=== PATIENT | female | born 1945 | race Caucasian/White ===

== ENCOUNTER → 2018-07-04 | Outpatient (CLI) | payer MEDICARE ==
--- NOTE | 2018-07-04 13:46 | Diagnostic Imaging Report ---
EXAMINATION: Head CT HISTORY: Evaluate for CVA COMPARISON: None. TECHNIQUE: Multidetector axial images were obtained without contrast from the foramen magnum to the vertex . The images were reconstructed using brain and bone algorithms. Thin section brain images were reformatted into coronal and sagittal planes. Intravenous contrast: None. Image quality: Motion/streaking artifact limits the evaluation of the skull base and posterior cranial fossa. FINDINGS: Parenchyma: 1. Few scattered white matter hyperintense foci, most likely age appropriate minimal chronic microvascular ischemic changes. 2. No mass or hemorrhage. No CT evidence of acute territorial vascular insult. Extra-axial spaces:No abnormal density. No extra-axial fluid collections Brain volume: Normal for age. Ventricles: No hydrocephalus or displacement. Arteries: No density suggestive of thrombus. Dural sinuses: No abnormal density. Extra-axial spaces: No abnormal density. Foramen magnum: No mass, Chiari malformation, or basilar invagination. Sella: No obvious mass. Paranasal/mastoid sinuses: Imaged portions unremarkable. Skull/Scalp: No lytic or blastic lesions. No fractures. IMPRESSION: No acute intracranial abnormalities, particularly no hemorrhagic or acute cortical infarcts. Signed by: Dr. Sommer Ibarra M.D. on 07/04/2018 1:43 PM
== END ==
LOC: CT 12:11
PROVIDERS: ATTEND Family Medicine
DX: I65.29 Occlusion and stenosis of unspecified carotid artery (principal)
CPT/HCPCS: 70450

== ENCOUNTER → 2019-02-24 | Outpatient (CLI) | payer MEDICARE ==
--- NOTE | 2019-02-24 14:47 | Diagnostic Imaging Report ---
EXAMINATION: PA and lateral views of the chest. COMPARISON: None CLINICAL HISTORY: Chronic cough DISCUSSION: Lines/tubes: None. Lungs: The lungs are mildly hyperinflated, with increased lucency in the upper lungs, suggesting COPD. there is no evidence of pneumonia or pulmonary edema. Pleura: There is no pleural effusion or pneumothorax. Heart and mediastinum: Cardiomediastinal silhouette is unremarkable. Pulmonary vasculature is normal. Bones and soft tissues: No acute bony abnormalities. Degenerative changes in the thoracic spine IMPRESSION: COPD changes, without acute cardiopulmonary abnormalities. Signed by: Dr. Ramiro Coffey M.D. on 02/24/2019 2:44 PM
--- NOTE | 2019-02-24 14:48 | Diagnostic Imaging Report ---
Exam: Right Knee AP and lateral. History: Right knee pain and discomfort for one month Comparison: None. Findings: 2 views of the right knee. There is mildly decreased bone mineralization. Negative for acute, displaced fracture or dislocation. Joint spaces are relatively well-preserved. No abnormal soft tissue calcification or mass. No effusions or soft tissue swelling. Impression: 1. No acute abnormalities. Signed by: Dr. Ramiro Coffey M.D. on 02/24/2019 2:45 PM
== END ==
LOC: RAD 13:29
PROVIDERS: ATTEND Internal Medicine
DX: R05 Cough (principal); M25.561 Pain in right knee
CPT/HCPCS: 71046

== ENCOUNTER → 2019-06-15 | Day surgery (SDC) | payer MEDICARE ==
[2019-06-08 16:23] LABS: BASOPHILS % 0.7 % (0.0-1.0); EOSINOPHILS # (AUTO) 0.2 (0.0-0.4); EOSINOPHILS % 3.1 % (0.0-6.0); HEMATOCRIT 36.3 % (34.2-44.1); HEMOGLOBIN 11.8 g/dL (12.0-16.0); LYMPHOCYTES # (AUTO) 1.3 (1.0-3.2); LYMPHOCYTES % 23.1 % (18.0-39.1); MEAN CORPUSCULAR HGB CONC 32.5 g/dL (31-35); MEAN CORPUSCULAR VOLUME 89.2 fL (81-99); MONOCYTES # (AUTO) 0.6 (0.2-0.8); MONOCYTES % 10.7 % (4.4-11.3); NEUTROPHILS # (AUTO) 3.6 (2.1-6.9); NEUTROPHILS % 62.2 % (38.7-80.0); PLATELET COUNT 186 x10e3/uL (140-360); RED BLOOD COUNT 4.07 x10e6/uL (3.6-5.1); RED CELL DISTRIBUTION WIDTH 14.2 % (11.7-14.4)
[~2019-06-15] MED LIST: ALL DAY ALLERGY10 MG PO; BENICAR HCT 201 EACH PO; CALTRATE-600 W1 EACH PO; EPHEDRINE SULFATE INJ 50 MG/10 ML SYR ONE; FENTANYL CITRATE/PF 100MCG/2 ML INJ ONE; GLYCOPYRROLATE INJ 1MG/ 5 ML SYR ONE; HYOSCYAMINE 0.125 MG TAB ONE; MIDAZOLAM HCL 2 MG/2 ML VIAL ONE; NAPROXEN250 MG PO; PROPOFOL IV EMULSION 10 MG/ML 50 ML VIAL ONE; ROLOXIFENE PO; SIMETHICONE 40 MG/0.6 ML BTL ONE; VITAMIN C250 M1 PO; VITAMIN D32000 UNIT PO
--- OUTSIDE RECORDS SUMMARY | 2019-06-15 07:50 | XMS REPORT ---
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 Allergies, Adverse Reactions, Alerts This patient has no known allergies or adverse reactions. Medications This patient has no known medications. Results Test Description Test Time Test Comments Text Results Atomic Results Result Comments KNEE RIGHT 1-2 VIEWS 2019-02-24 14:44:00 [place] [address] Patient Name: LARRY MEJIA MR #: [id number] : 1945 Age/Sex: 73/F Req #: [id number] Adm Physician: Ordered by: SHAWNEE WAGNER MD Report #: [id number] Location: [facility] Room/Bed: Procedure: [id number] DX/KNEE RIGHT 1-2 VIEWS Exam Date: 02/24/19 Exam Time: 1410 REPORT STATUS: Signed Exam: Right Knee AP and lateral. History: Righ t knee pain and discomfort for one month Comparison: None. Findings: 2 views of the right knee. There is mildly decreased bone mineralization. Negative for acute, displaced fracture or dislocation. Joint spaces are relatively well-preserved. No abnormal soft tissue calcification or mass. No effusions or soft tissue swelling. Impression: 1. No acute abnormalities. Signed by: Dr. Jose Coffey M.D. on 02/24/2019 2:45 PM Dictated By: JOSE COFFEY MD 44 Transcribed By: SEBASTIAN on 02/24/191444 COPY TO: SHAWNEE WAGNER MD CHEST 2 VIEWS 2019-02-24 14:43:00 [place] [address] Patient Name: LARRY MEJIA MR #: [id number] : 1945 Age/Sex: 73/F Req #: [id number] Adm Physician: Ordered by: SHAWNEE WAGNER MD Report #: [id number] Location: [facility] Room/Bed: Procedure: [id number] DX/CHEST 2 VIEWS Exam Date: 02/24/19 Exam Time: 1410 REPORT STATUS: Signed EXAMINATION: PA and lateral views of the chest. COMPAR KWAN: None CLINICAL HISTORY: Chronic cough DISCUSSION: Lines/tubes: None. Lungs: The lungs are mildly hyperinflated, with increased lucency in the upper lungs, suggesting COPD. there is no evidence of pneumonia or pulmonary edema. Pleura: There is no pleural effusion or pneumothorax. Heart and mediastinum: Cardiomediastinal silhouette is unremarkable. Pulmonary vasculature is normal. Bones and soft tissues: No acute bony abnormalities. Degenerative changes in the thoracic spine IMPRESSION: COPD changes, without acute cardiopulmonary abnormalities. Signed by: Dr. Jose Coffey M.D. on 02/24/2019 2:44 PM Dictated By: JOSE COFFEY MD 1444 Transcribed By: SEBASTIAN on 02/24/191443 COPY TO: SHAWNEE WAGNER MD CT BRAIN WO 2018-07-04 13:41:00 [facility] [address] [place] [address] Patient Name: LARRY MEJIA MR #: [id number] : 1945 Age/Sex: 72/F Req #: [id number] Adm Physician: Ordered by: ARELY DÍAZ MD Report #: [id number] Location: CT Room/Bed: Procedure: [id number] CT/CT BRAIN WO Exam Date: 07/04/18 Exam Time: 1240 REPORT STATUS: Signed ADDENDUM #1 Technique: Dose modulation, iterative reconstruction, and/or weight based adjustment of the mA/kV was utilized to reduce the radiation dose to as low as reasonably achievable. History: Weakness, clinical symptoms of CVA. Signed by: Dr. Inocente Ibarra M.D. on 07/18/2018 10:02 AM ORIGINAL REPORT EXAMINATION: Head CT HISTORY: Evaluate for CVA COMPARISON: None. TECHNIQUE: Multidetector axial images were obtained without contrast from the foramen magnum to the vertex . The images were reconstructed using brain and bone algorithms. Thin section brain images were reformatted into coronal and sagittal planes. Intravenous contrast: None. Image quality: Motion/streaking artifact limits the evaluation of the skull base and posterior cranial fossa. FINDINGS: Parenchyma: 1. Few scattered white matter hyperintense foci, most likely age appropriate minimal chronic microvascular ischemic changes. 2. No mass or hemorrhage. No CT evidence of acute territorial vascular insult. Extra-axial spaces:No abnormal density. No extra-axial fluid collections Brain volume: Normal for age. Ventricles: No hydrocephalus or displacement. Arteries: No density suggestive of thrombus. Dural sinuses: No abnormal density. Extra-axial spaces: No abnormal density. Foramen magnum: No mass, Chiari malformation, or basilar invagination. Sella: No obvious mass. Paranasal/mastoid sinuses: Imaged portions unremarkable. Skull/Scalp: No lytic or blastic lesions. No fractures. IMPRESSION: No acute intracranial abnormalities, particularly no hemorrhagic or acute cortical infarcts. Signed by: Dr. Inocente Ibarra M.D. on 07/04/2018 1:43 PM Dictated By: INOCENTE IBARRA MD 1002 Transcribed By: SEBASTIAN on 07/04/18 1343 COPY TO: ARELY DÍAZ MD
[2019-06-15 11:10] VITALS: BP 123/67
--- NOTE | 2019-06-15 12:32 | Operative Report ---
DATE OF PROCEDURE: 06/15/2019 SURGEON: Lobito Pina MD PROCEDURE: Colonoscopy and polypectomy note. INDICATIONS FOR COLONOSCOPY: Surveillance colonoscopy, personal history of colon polyps. MEDICATION: The patient was done under MAC, please see anesthesiologist's note. PROCEDURE IN DETAIL: With the patient in left lateral decubitus position, flexible fiberoptic Olympus colonoscope was inserted into the rectum with ease and advanced all the way to the cecum. The scope was then withdrawn slowly and mucosa overlying the cecum appeared to be within normal limits. One polyp was snared from the ascending colon. One polyp was snared and one polyp was hot biopsied from the transverse colon. The descending colon appeared to be within normal limits. Two polyps were hot biopsied and one polyp was snared from the sigmoid colon and four polyps were hot biopsied from the rectum. The scope was then retroflexed into the distal rectum and small internal hemorrhoids were noted, none of which was actively bleeding. The scope was then straightened out, it was subsequently withdrawn. The patient tolerated procedure well. IMPRESSION: 1. Ascending colon polyp, snared. 2. Transverse colon polyps x2, one snared and one hot biopsied. 3. Sigmoid colon polyps x3, one snared and two hot biopsied. 4. Rectal polyps x4, hot biopsied. 5. Internal hemorrhoids, none actively bleeding. PLAN: Follow up histology. Initiate high-fiber, low-fat diet. Initiate high-fiber supplement. The patient might benefit from a followup colonoscopy in 3 years. Lobito Pina MD [facility] [place] /[id number] cc: Lucio Galindo MD
== END | disposition home or self-care (01) ==
LOC: OR 07:46
PROVIDERS: ATTEND Internal Medicine Gastroenterology
DX: Z09 Encounter for follow-up examination after completed treatment for conditions other than malignant neoplasm (principal); D12.3 Benign neoplasm of transverse colon; D12.2 Benign neoplasm of ascending colon; K62.1 Rectal polyp; K64.8 Other hemorrhoids; M54.9 Dorsalgia, unspecified; G47.33 Obstructive sleep apnea (adult) (pediatric); R00.1 Bradycardia, unspecified; I10 Essential (primary) hypertension; Z01.810 Encounter for preprocedural cardiovascular examination; Z01.812 Encounter for preprocedural laboratory examination; Z88.0 Allergy status to penicillin; Z88.2 Allergy status to sulfonamides; Z80.0 Family history of malignant neoplasm of digestive organs
CPT/HCPCS: 36415; 45384; 45385; 85025; 93005; J2250; J2704; J3010; J3490

== ENCOUNTER → 2019-11-15 | Outpatient (CLI) | payer MEDICARE ==
[~2019-11-15] MED LIST changes: -EPHEDRINE SULFATE INJ 50 MG/10 ML SYR ONE; -FENTANYL CITRATE/PF 100MCG/2 ML INJ ONE; -GLYCOPYRROLATE INJ 1MG/ 5 ML SYR ONE; -HYOSCYAMINE 0.125 MG TAB ONE; -MIDAZOLAM HCL 2 MG/2 ML VIAL ONE; -PROPOFOL IV EMULSION 10 MG/ML 50 ML VIAL ONE; -SIMETHICONE 40 MG/0.6 ML BTL ONE
--- NOTE | 2019-11-15 12:50 | Diagnostic Imaging Report ---
Left knee, 4 views. History: Left knee arthritis. Findings: The soft tissues are normal. Bone mineralization is normal. There is no evidence of fracture or dislocation. There are no lytic or sclerotic lesions. There is moderate medial joint space narrowing and osteophytosis. Small posterior patellar osteophyte is also present. IMPRESSION: Moderate left knee DJD. Signed by: Jann Sam on 11/15/2019 12:47 PM
== END ==
LOC: RAD 11:45
PROVIDERS: ATTEND Internal Medicine
DX: M17.12 Unilateral primary osteoarthritis, left knee (principal)

== ENCOUNTER → 2021-02-11 | Outpatient (CLI) | payer MEDICARE | LOC: RAD 15:19 | PROVIDERS: ATTEND Internal Medicine | DX: M17.12 Unilateral primary osteoarthritis, left knee (principal) ==

== ENCOUNTER → 2021-03-28 | Outpatient (CLI) | payer MEDICARE | LOC: RAD 12:46 | PROVIDERS: ATTEND Internal Medicine | DX: R05 Cough (principal) | CPT/HCPCS: 71046 ==